=== PATIENT | male | born 1945 | race Caucasian/White ===

== ENCOUNTER 2016-10-25 16:52 | Inpatient (IN) | payer MEDICARE ==
[~2016-10-25] VITALS: Ht 162.5 cm; Wt 51.9 kg
--- NOTE | ~2016-10-25 | PR ---
[place], [place] PROGRESS NOTE NAME: KO MIRANDA UNIT #: [id number] ROOM: 315 DOCTOR: NASIM SOTO MD BIRTHDATE: [birth year] DOS: 10/30/2016 CHIEF COMPLAINT: "I can do it my way." SUMMARY OF THE VISIT: The patient was interviewed in the dining area where he sat completing his breakfast. He once again seemed to be rather terse and help rejecting. Nurses did point out to me that yesterday he did excessive amount of hand ringing that was almost ritualistic in a specific pattern. Additionally, they have noticed that he has many other patterns that he follows throughout the day and becomes very agitated if we try to intervene and prevent him from doing things. That said there seems to be then an overriding obsessive compulsive issue here. He remains confused for the most part, but redirectable. MENTAL STATUS: He is alert and oriented to person, place, but not time. Mood does still seem to be labile with anxious overtones. There is no brain or hypomania. There are no overt auditory or visual hallucinations. No delusions, no paranoia. Short term memory is poor. PLAN: I will go ahead and maximize the dose of Namenda to 10 mg b.i.d. Given the fact that there does seem to be a predominant OCD component present with overriding anxiety and behaviors link to it. I will go ahead and start Luvox 50 mg twice daily and adjust accordingly. Continue to engage in individual and bailey milieu activity with the ultimate plan to return to the least restrictive environment when psychiatrically stable. NASIM SOTO MD CM:PNTRANS [id number] NASIM SOTO MD 10/30/16 1028 interface
--- NOTE | ~2016-10-25 | PR ---
[place], [place] PROGRESS NOTE NAME: KO MIRANDA UNIT #: [id number] ROOM: 315 DOCTOR: NASIM SOTO MD BIRTHDATE: [birth year] DOS: 10/29/2016 CHIEF COMPLAINT: "I can do it myself, thank you." SUMMARY OF THE VISIT: The patient was interviewed in the dining area where he was sitting, eating his breakfast. He was rather short and terse, not actually unpleasant, but very much allude. I did offer assistance to him, which he politely refused. I offered also to get him more food, again he politely refused. He was not angry or agitated, but as mentioned previously just allude and rather terse with me. Nurses report, he has been doing relatively well and redirects without much incident. He is tolerating the current medication regimen well. MENTAL STATUS: He is alert and oriented to self, possibly place, but not time. Mood does still seem to be rather short and terse with some irritable overtones. There is no hypomania or brain. There are no overt auditory or visual hallucinations. No delusions, no paranoia. Short term memory is poor and he processes slowly. PLAN: I will go ahead and increase his Exelon patch from 9.5-13.3 mg daily, attempting to maximize potential benefits. I will increase Namenda from 5 mg twice a day to 5 mg in the morning and 10 mg at night with a target dose of 10 mg b.i.d. in mind in order to maximize its benefits. He is somewhat anemia, so I will go ahead and start some multivitamin with minerals just to augment his status. Engage in individual and bailey milieu activity, returning to the least restrictive environment when psychiatrically stable. NASIM SOTO MD CM:PNTRANS [id number] NASIM SOTO MD 10/29/16 1008 interface
--- NOTE | ~2016-10-25 | PR ---
[place], [place] PROGRESS NOTE NAME: KO MIRANDA UNIT #: [id number] ROOM: 311 DOCTOR: NASIM SOTO MD BIRTHDATE: [birth year] DOS: 10/31/2016 CHIEF COMPLAINT: "I'll do it my way, thank you." SUMMARY OF THE VISIT: The patient was interviewed as he sat in the dining area. Once again, I did attempt to offer assistance to him and he very quickly and tersely refused it. Nurses report, he continues to exhibit ritualistic behavior that does tend to cause him to be increasingly more anxious and agitated if redirected. Overall, there has been a steady trend in the improvement, however and he has been much more compliant with all aspects of care including medication. The patient does seem to be tolerating the current medication regimen well. I see no sedation, somnolence, extrapyramidal symptoms or tardive dyskinesia. MENTAL STATUS: He is alert and oriented to person, possibly place, not to time. Mood does seem to be trending gradually towards improvement. There still is some residual anxiety noted. There is no overt hypomania or brain. Likewise, there are no overt auditory or visual hallucinations. No delusions or voice. No paranoia is present. He does process extremely slowly and has significant gaps in short term memory. PLAN: I will maintain his current dose of the Exelon patch and the Namenda. I will go ahead and increase Luvox from 50 mg b.i.d. to 50 mg in the morning and 100 mg at bedtime to target the OCD like symptomatology along with the anxiety and resultant agitation. We will continue to engage him in individual and bailey milieu activity, returning to the least restrictive environment when psychiatrically stable. NASIM SOTO MD CM:PNTRANS NASIM SOTO MD 10/31/16 0948 interface
[~2016-10-25 16:52] MED LIST: B-1100 M1 PO; B12,B-12,B 12500 MC1 PO; B121000 MCG/1 IM; HYDR12.5C PO; Zestril,Prinivi40 MG PO
[2016-10-25] MEDS ORDERED: VISTARIL50 MG PO (18:06)
[2016-10-25] MEDS ORDERED: ARTHRITIS PAIN650 M3 PO (18:06)
[2016-10-25] MEDS ORDERED: NAMENDA-5 PO (18:08)
[2016-10-25] MEDS ORDERED: REMERON15 M2 PO (18:09)
[2016-10-25] MEDS ORDERED: RIVASTIGMINE TAR3 M1 PO (18:10)
[2016-10-25] MEDS ORDERED: MAPAP325 MG PO (18:11)
[2016-10-25 18:14] VITALS: BP 156/66
[2016-10-25 20:34] VITALS: BP 150/63
[2016-10-26 06:54] LABS: BASO % 0.5 % (0.0-1.0); EOS # 0.1 10*3/uL (0.0-0.4); EOS % 2.5 % (1.0-4.0); HEMATOCRIT 35.3 % (42.0-52.0); HEMOGLOBIN 11.7 g/dl (14.0-18.0); LYMPH # 2.6 10*3/uL (1.3-4.4); LYMPH % 47.8 % (27.0-41.0); MEAN CELL VOLUME 97.5 fl (80.0-94.0); MEAN CORPUSCULAR HGB 32.3 pg (27.0-31.0); MEAN CORPUSCULAR HGB CONC 33.1 g/dl (33.0-37.0); MEAN PLATELET VOLUME 8.3 fl (9.6-12.3); MONO # 0.4 10*3/uL (0.1-1.0); MONO % 7.6 % (3.0-9.0); NEUT # 2.3 10*3/uL (2.3-7.9); NEUT % 41.2 % (47.0-73.0); PLATELET COUNT AUTOMATED 191 10*3/uL (130-400); RED BLOOD COUNT 3.62 10*6/uL (4.50-5.90); RED CELL DISTRI WIDTH 12.3 % (0-14.5); WHITE BLOOD COUNT 5.5 10*3/uL (4.8-10.8)
[2016-10-26 06:54] LABS: BILIRUBIN NEGATIVE (NEGATIVE); BLOOD NEGATIVE (NEGATIVE); CLARITY CLEAR (CLEAR); COLOR YELLOW (YELLOW); GLUCOSE NEGATIVE (NEGATIVE); KETONE NEGATIVE (NEGATIVE); LEUKO ESTERASE NEGATIVE (NEGATIVE); NITRITE NEGATIVE (NEGATIVE); PH 5.5 (5.0-9.0); PROTEIN NEGATIVE (NEGATIVE); SPECIFIC GRAVITY <= 1.005 (1.005-1.030); UROBILINOGEN 0.2 E.U./dl (0.2-1.0)
[2016-10-26 07:03] LABS: EPITHELIAL CELLS 0-2; URINE REFLEX COMMENT NO (NO)
[2016-10-26 07:28] LABS: POTASSIUM 3.8 mmol/L (3.5-5.1)
[2016-10-26 07:46] LABS: ALBUMIN 4.2 gm/dl (3.1-4.5); BILIRUBIN, TOTAL 0.3 mg/dl (0.2-1.0); THYROID STIM HORMONE (HS) 1.61 uIU/ml (0.358-4.75); TOTAL PROTEIN 8.4 gm/dL (6.4-8.2)
[2016-10-26 08:00] VITALS: BP 153/68
[2016-10-26 08:45] LABS: FOLIC ACID 9.12 ng/mL (>5.38); VITAMIN D, 25-HYDROXY 38.5 ng/mL (30-100)
[2016-10-26 20:07] VITALS: BP 150/78
[2016-10-27 08:03] VITALS: BP 135/54
[2016-10-27 19:39] VITALS: BP 136/63
[2016-10-28 08:10] VITALS: BP 136/62
[2016-10-28 20:00] VITALS: BP 123/64
[2016-10-29 07:56] VITALS: BP 133/60
[2016-10-29 19:51] VITALS: BP 123/69
[2016-10-30 07:48] VITALS: BP 100/69; BP 122/64
[2016-10-30 20:14] VITALS: BP 138/56
[2016-10-31 08:10] VITALS: BP 131/70
[2016-10-31 20:00] VITALS: BP 133/63
[2016-11-01 08:03] VITALS: BP 125/67
[2016-11-01 20:00] VITALS: BP 115/86
[2016-11-02 08:00] VITALS: BP 145/73
[2016-11-02 20:16] VITALS: BP 104/73
[2016-11-03 07:54] VITALS: BP 142/59
[2016-11-03 20:18] VITALS: BP 122/70
[2016-11-04 08:10] VITALS: BP 128/64
[2016-11-04] MEDS ORDERED: EXELON13.3 MG/21 TD (14:16)
[2016-11-04] MEDS ORDERED: DEPAKOTE SPRIN125 MG PO ×2 (14:17→14:18)
[2016-11-04] MEDS ORDERED: COGENTIN0.5 MG PO (14:18)
[2016-11-04] MEDS ORDERED: NAMENDA-5 PO (14:19)
[2016-11-04] MEDS ORDERED: FLUVOXAMINE50 MG PO (14:20)
[2016-11-04] MEDS ORDERED: FLUVOXAMINE100 MG PO (14:21)
[2016-11-04 20:09] VITALS: BP 125/69
== END 2016-11-04 20:58 | disposition other institution (70) | DRG 885 ==
LOC: 3N 16:52
PROVIDERS: Psychiatry & Neurology Psychiatry
DX: F23 Brief psychotic disorder (principal); F03.91 Unspecified dementia, unspecified severity, with behavioral disturbance; I10 Essential (primary) hypertension; F17.200 Nicotine dependence, unspecified, uncomplicated; E53.8 Deficiency of other specified B group vitamins; M15.9 Polyosteoarthritis, unspecified; F63.9 Impulse disorder, unspecified; Z84.1 Family history of disorders of kidney and ureter; Z80.9 Family history of malignant neoplasm, unspecified; Z79.899 Other long term (current) drug therapy